=== PATIENT | female | born 1990 | race Hispanic/Latino ===

== ENCOUNTER 2023-12-25 11:56 | Emergency (ER) | payer OTHER ==
[~2023-12-25] VITALS: Ht 180.3 cm; Wt 181.4 kg
[2023-12-25 12:00] VITALS: PULSE 88; RESP 20; TEMP 98.6; O2SAT 94
[2023-12-25] MEDS ORDERED: AMOXICILLIN500 MG PO (12:04)
[2023-12-25] MEDS ORDERED: AMOX TR-K CLV1 EAC2 PO (12:07)
== END 2023-12-25 13:25 | disposition home or self-care (01) ==
LOC: ER 12:06
DX: J02.0 Streptococcal pharyngitis (principal)
CPT/HCPCS: 99283

== ENCOUNTER 2024-01-07 22:04 | Emergency (ER) | payer OTHER ==
[~2024-01-07] VITALS: Ht 167.6 cm; Wt 182.3 kg
[~2024-01-07 22:04] MED LIST: AMOX TR-K CLV1 EAC2 PO; AMOXICILLIN500 MG PO
[2024-01-08] MEDS ORDERED: CEFDINIR300 MG PO (00:50)
[2024-01-08] MEDS ORDERED: VENTOLIN HFA18 GM INH (00:51)
[2024-01-08] MEDS ORDERED: LEVOFLOXACIN 500 MG TAB PO ONE (01:00)
[2024-01-08 01:04] VITALS: PULSE 81; RESP 20
[2024-01-08] MEDS: ALBUTEROL/IPRATROPIUM 3 ML NEB NEB ONE (01:04)
[2024-01-08] MEDS ORDERED: PREDNISONE20 MG PO (01:26)
[2024-01-08 01:48] VITALS: PULSE 85; RESP 20; TEMP 97.3; O2SAT 92
== END 2024-01-08 01:42 | disposition home or self-care (01) ==
LOC: FSED 22:41
DX: R06.02 Shortness of breath (principal); J20.9 Acute bronchitis, unspecified; E66.01 Morbid (severe) obesity due to excess calories; Z11.52 Encounter for screening for COVID-19
CPT/HCPCS: 0223U; 83518; 87400; 99283

== ENCOUNTER 2024-05-11 22:24 | Emergency (ER) | payer OTHER ==
[~2024-05-11] VITALS: Ht 167.6 cm; Wt 182.3 kg
[~2024-05-11 22:24] MED LIST changes: +BENZONATATE200 MG PO; +CEFDINIR300 MG PO; +PREDNISONE20 MG PO; +VENTOLIN HFA18 GM INH
[2024-05-11 23:20] VITALS: PULSE 81; RESP 16; TEMP 98.4; O2SAT 94
[2024-05-11] MEDS ORDERED: AMOX TR-K CLV1 EAC2 PO (23:39)
[2024-05-11] MEDS ORDERED: ULTRAM 50MG50 MG PO (23:39)
== END 2024-05-11 23:48 | disposition home or self-care (01) ==
LOC: ER 22:35
DX: K08.89 Other specified disorders of teeth and supporting structures (principal); E66.01 Morbid (severe) obesity due to excess calories
CPT/HCPCS: 99283

== ENCOUNTER 2024-09-05 19:27 | Emergency (ER) | payer SELFPAY ==
[~2024-09-05] VITALS: Ht 167.6 cm; Wt 182.3 kg
[~2024-09-05 19:27] MED LIST changes: +ULTRAM 50MG50 MG PO
[2024-09-05 19:49] VITALS: PULSE 77; RESP 20; TEMP 98.3
[2024-09-05] MEDS ORDERED: TETRACAINE HCL 0.5% OPTH SOLN 4 ML BTL OP ONE (20:00)
[2024-09-05] MEDS ORDERED: FLUORESCEIN SOD(OPTH) 1 MG STRP OP ONE (20:45)
[2024-09-05] MEDS ORDERED: BACITRACIN-POL3.5 GM OS (21:02)
[2024-09-05 21:29] VITALS: BP 154/103; O2SAT 99
[2024-09-06] MEDS ORDERED: FLUOROMETHOLONE 0.1% OPTHMALMIC SUSP 5 ML BTL OP SCH (09:00)
== END 2024-09-05 21:31 | disposition home or self-care (01) ==
LOC: ER 19:49
DX: H57.12 Ocular pain, left eye (principal); H01.004 Unspecified blepharitis left upper eyelid; E66.01 Morbid (severe) obesity due to excess calories
CPT/HCPCS: 99283